=== PATIENT | male | born 1980 | race Caucasian/White ===

== ENCOUNTER 2017-02-25 14:13 | Emergency (ER) | payer OTHER ==
[~2017-02-25] VITALS: Ht 167.6 cm; Wt 77.1 kg
[~2017-02-25 14:13] MED LIST: ATEN50TA2 PO; CELE20TA PO; DRIS50002 PO; FIOR1CAP PO; HYDR-3644 PO; LISI-538 PO; LYRI100C10 PO; MOBI7.5T10 PO; NAPR500T2 PO; PRIL20CA9 PO; SKEL-29 PO; TENO1TAB4 PO; ZEST1TAB7 PO
[2017-02-25] MEDS ORDERED: MORPHINE 4 MG/ML 1ML SYRINGE IV ONE (14:45)
[2017-02-25] MEDS ORDERED: ISOVUE-370 76% 100ML VIAL (Q9967) As Ordered ONE (15:28)
[2017-02-25 15:30] LABS: BASO % 0.4 % (0.0-1.0); EOS # 0.2 K/mm3 (0.0-0.50); EOS % 1.4 % (0.0-3.0); LARGE UNSTAINED CELL # 0.2 K/mm3 (0.0-0.4); LARGE UNSTAINED CELL % 1.5 % (0.0-4.0); LYMPH # 3.1 K/mm3 (1.5-4.5); LYMPH % 25.5 % (24.0-44.0); MEAN CORPUSCULAR HEMOGLOBIN 32.2 pg (27.0-33.0); MEAN CORPUSCULAR HGB CONC 34.1 g/dl (32.0-36.5); MEAN CORPUSCULAR VOLUME 94.4 fl (80.0-96.0); MONO # 0.5 K/mm3 (0.0-0.8); MONO % 4.6 % (0.0-5.0); NEUTROPHILS # 7.6 K/mm3 (1.8-7.7); NEUTROPHILS % 66.6 % (36.0-66.0); PLATELET COUNT, AUTOMATED 358 k/mm3 (150-450); RED CELL DISTRIBUTION WIDTH 13.3 % (11.5-14.5); WHITE BLOOD COUNT 11.3 K/mm3 (4.0-10.0)
[2017-02-25 15:38] LABS: INR 0.95
[2017-02-25 15:56] LABS: ALBUMIN 3.8 GM/DL (3.2-5.2); ALKALINE PHOSPHATASE 109 U/L (45-117); ALT/SGPT 35 U/L (12-78); AMYLASE 47 U/L (25-115); ANION GAP 5 MEQ/L (8-16); AST/SGOT 20 U/L (15-37); BILIRUBIN,DIRECT < 0.1 MG/DL (0.0-0.2); BILIRUBIN,TOTAL 0.3 MG/DL (0.2-1.0); BLOOD UREA NITROGEN 12 MG/DL (7-18); CALCIUM LEVEL 8.6 MG/DL (8.5-10.1); CARBON DIOXIDE LEVEL 28 MEQ/L (21-32); CHLORIDE LEVEL 106 MEQ/L (98-107); CREATININE FOR GFR 0.95 MG/DL (0.70-1.30); GLOMERULAR FILTRATION RATE > 60.0 (>60); GLUCOSE, FASTING 87 MG/DL (70-105); POTASSIUM SERUM 3.9 MEQ/L (3.5-5.1); SODIUM LEVEL 139 MEQ/L (136-145); TOTAL PROTEIN 7.6 GM/DL (6.4-8.2)
[2017-02-25 17:14] VITALS: BP 129/86
[2017-02-25] MEDS ORDERED: BUPR300T34 (18:31)
[2017-02-25] MEDS ORDERED: OXYC15TA76 (18:31)
[2017-02-25] MEDS ORDERED: BUTA-198 (18:31)
[2017-02-25] MEDS ORDERED: HYDR-3713 (18:31)
[2017-02-25] MEDS ORDERED: CLEM2.68 (18:31)
--- NOTE | 2017-02-26 07:48 | REP ---
CT CERVICAL SPINE: CT cervical spine performed in the axial plane with sagittal and coronal reconstruction images. There is no fracture or dislocation. Vertebral bodies are normal in height and are well aligned with normal cervical lordosis. There is no prevertebral soft tissue swelling. Disc spaces appear preserved. Spinal canal is grossly unremarkable. IMPRESSION: No fracture or dislocation. Signed by Lyle Decker MD 02/26/2017 12:19 P
--- NOTE | 2017-02-26 07:48 | REP ---
CT BRAIN WITHOUT CONTRAST: CT brain is performed without IV contrast. Ventricles are normal in size and position. There is no midline shift. No abnormal densities are seen. Decker-white differentiation is well maintained. There is no acute hemorrhage. There is no extra-axial fluid collection. No skull fracture is seen. IMPRESSION: Negative noncontrast CT brain. Signed by Lyle Decker MD 02/26/2017 12:19 P
--- NOTE | 2017-02-26 07:51 | REP ---
CT CHEST WITH IV CONTRAST: TECHNIQUE: Axial contrast enhanced images from the thoracic inlet to the upper abdomen using 100 mL Isovue 370 intravenous contrast material with multiplanar reformations. Lungs are clear with no infiltrate or contusion. There is no pneumothorax. There is no pleural or pericardial effusion. Heart is normal in size. No adenopathy or hematoma is seen in the mediastinum. Normal size hilar lymph nodes are present. There is no evidence of aortic dissection. Visualized osseous structures are intact with no fracture. IMPRESSION: Negative CT chest with IV contrast as discussed in detail above. Signed by Lyle Decker MD 02/26/2017 12:19 P
--- NOTE | 2017-02-26 07:52 | REP ---
BILATERAL HUMERI, AP AND LATERAL: There is no evidence of an acute fracture, dislocation or intrinsic bone disease. IMPRESSION: No fracture or dislocation. Signed by Lyle Decker MD 02/26/2017 12:19 P
--- NOTE | 2017-02-26 07:52 | REP ---
LEFT KNEE, FOUR VIEWS: There is no evidence of an acute fracture, dislocation or intrinsic bone disease. IMPRESSION: No fracture or dislocation. Signed by Lyle Decker MD 02/26/2017 12:19 P
--- NOTE | 2017-02-26 07:53 | REP ---
BILATERAL FOREARMS, AP AND LATERAL: There is no evidence of an acute fracture, dislocation or intrinsic bone disease. IMPRESSION: No fracture or dislocation. Signed by Lyle Decker MD 02/26/2017 12:19 P
--- NOTE | 2017-02-26 07:54 | REP ---
CT ABDOMEN AND PELVIS WITH IV CONTRAST: TECHNIQUE: Axial contrast enhanced images from the lung bases to the pubic symphysis using 100 mL Isovue 370 intravenous contrast material with multiplanar reformations. The liver, spleen, adrenals, pancreas, and kidneys appear normal. There is no evidence of visceral organ injury. There is no abnormality of the abdominal aorta. There is no adenopathy. There is no free air or free fluid. No bowel abnormality is seen. The appendix is normal. There is no pelvic mass or other abnormality. Urinary bladder appears intact. The visualized osseous structures are intact. IMPRESSION: Negative CT abdomen and pelvis with contrast. No evidence of visceral organ injury, free air, or free fluid. Signed by Lyle Decker MD 02/26/2017 12:19 P
== END 2017-02-25 17:18 | disposition home or self-care (01) ==
LOC: M ED 15:17
DX: S50.812A Abrasion of left forearm, initial encounter (principal); S80.212A Abrasion, left knee, initial encounter; S83.92XA Sprain of unspecified site of left knee, initial encounter; V03.00XA Pedestrian on foot injured in collision with car, pick-up truck or van in nontraffic accident, initial encounter; Y92.018 Other place in single-family (private) house as the place of occurrence of the external cause; Y93.89 Activity, other specified; Y99.8 Other external cause status; I10 Essential (primary) hypertension; M79.7 Fibromyalgia; F41.8 Other specified anxiety disorders; F33.9 Major depressive disorder, recurrent, unspecified; Z79.899 Other long term (current) drug therapy; Z88.5 Allergy status to narcotic agent; Z88.8 Allergy status to other drugs, medicaments and biological substances; F17.210 Nicotine dependence, cigarettes, uncomplicated
CPT/HCPCS: 70450; 71260; 72125; 73060; 73090; 73564; 74177; 80048; 80076; 81001; 82150; 83605; 83690; 85025; 85610; 85730; 86850; 86900; 86901; 96374; 99283; Q9967

== ENCOUNTER → 2018-06-21 | Outpatient (CLI) | payer OTHER | LOC: M PAIN 14:00 | DX: M51.16 Intervertebral disc disorders with radiculopathy, lumbar region (principal); M51.17 Intervertebral disc disorders with radiculopathy, lumbosacral region; M47.816 Spondylosis without myelopathy or radiculopathy, lumbar region; M47.817 Spondylosis without myelopathy or radiculopathy, lumbosacral region; M54.5 Low back pain; G89.29 Other chronic pain; M79.7 Fibromyalgia; F32.9 Major depressive disorder, single episode, unspecified; G43.909 Migraine, unspecified, not intractable, without status migrainosus; F41.0 Panic disorder [episodic paroxysmal anxiety]; F17.200 Nicotine dependence, unspecified, uncomplicated; Z79.899 Other long term (current) drug therapy; Z88.5 Allergy status to narcotic agent; Z88.6 Allergy status to analgesic agent; Z88.8 Allergy status to other drugs, medicaments and biological substances | CPT/HCPCS: G0463 ==

== ENCOUNTER 2018-07-04 12:34 | Emergency (ER) | payer OTHER | END 2018-07-04 14:17 | disposition left against medical advice (07) | LOC: M ED 12:34 | DX: R03.0 Elevated blood-pressure reading, without diagnosis of hypertension (principal); Z53.21 Procedure and treatment not carried out due to patient leaving prior to being seen by health care provider ==

== ENCOUNTER → 2018-07-04 | Outpatient (CLI) | payer OTHER | LOC: M PAIN 11:30 | DX: M54.5 Low back pain (principal); G89.29 Other chronic pain; M79.1 Myalgia; R00.0 Tachycardia, unspecified; I10 Essential (primary) hypertension; G43.909 Migraine, unspecified, not intractable, without status migrainosus; F32.9 Major depressive disorder, single episode, unspecified; F41.9 Anxiety disorder, unspecified; F17.210 Nicotine dependence, cigarettes, uncomplicated; Z79.891 Long term (current) use of opiate analgesic; Z79.899 Other long term (current) drug therapy; Z88.8 Allergy status to other drugs, medicaments and biological substances; Z91.81 History of falling | CPT/HCPCS: G0463 ==

== ENCOUNTER 2018-07-16 22:37 | Emergency (ER) | payer OTHER ==
[2018-07-17] MEDS: oxyCODONE 5MG TAB PO ×2 (01:42)
[2018-07-17 01:44] LABS: BASO % 0.3 % (0.0-1.0); EOS # 0.3 10^3/uL (0.0-0.50); EOS % 2.3 % (0.0-3.0); HEMATOCRIT 42.9 % (42.0-52.0); IMMATURE GRANULOCYTE % 0.4 % (0-3.0); LYMPH # 3.8 10^3/uL (1.5-4.5); LYMPH % 27.1 % (24.0-44.0); MEAN CORPUSCULAR HEMOGLOBIN 31.6 pg (27.0-33.0); MEAN CORPUSCULAR VOLUME 90.3 fl (80.0-96.0); MONO # 1.5 10^3/uL (0.0-0.8); MONO % 10.3 % (0.0-5.0); NEUTROPHILS # 8.4 10^3/uL (1.8-7.7); NEUTROPHILS % 59.6 % (36.0-66.0); PLATELET COUNT, AUTOMATED 369 10^3/uL (150-450); RED BLOOD COUNT 4.75 10^6/uL (4.30-6.10); WHITE BLOOD COUNT 14.1 10^3/uL (4.0-10.0)
[2018-07-17 02:02] LABS: ANION GAP 8 MEQ/L (8-16); BLOOD UREA NITROGEN 15 MG/DL (7-18); CALCIUM LEVEL 8.3 MG/DL (8.5-10.1); CARBON DIOXIDE LEVEL 22 MEQ/L (21-32); CHLORIDE LEVEL 110 MEQ/L (98-107); CPK CREATINE PHOSPHOKINASE 539 U/L (39-308); CREATININE FOR GFR 0.99 MG/DL (0.70-1.30); GLOMERULAR FILTRATION RATE > 60.0 (>60); GLUCOSE, FASTING 94 MG/DL (70-100); MB/CK RELATIVE INDEX 0.48 (< OR =4); POTASSIUM SERUM 5.1 MEQ/L (3.5-5.1); SODIUM LEVEL 140 MEQ/L (136-145); TROPONIN I < 0.02 NG/ML (< 0.10)
== END 2018-07-17 01:51 | disposition left against medical advice (07) ==
LOC: M ED 07-17 01:51
DX: M54.9 Dorsalgia, unspecified (principal); G89.29 Other chronic pain; F17.210 Nicotine dependence, cigarettes, uncomplicated; Z79.899 Other long term (current) drug therapy
CPT/HCPCS: 93005

== ENCOUNTER → 2018-07-19 | Outpatient (CLI) | payer OTHER | LOC: M PAIN 14:15 | DX: M54.5 Low back pain (principal); G89.29 Other chronic pain; M79.7 Fibromyalgia; G25.81 Restless legs syndrome; F32.9 Major depressive disorder, single episode, unspecified; G43.909 Migraine, unspecified, not intractable, without status migrainosus; F41.0 Panic disorder [episodic paroxysmal anxiety]; I10 Essential (primary) hypertension; Z72.0 Tobacco use; Z79.899 Other long term (current) drug therapy; Z88.5 Allergy status to narcotic agent; Z88.6 Allergy status to analgesic agent; Z88.8 Allergy status to other drugs, medicaments and biological substances | CPT/HCPCS: G0463 ==

== ENCOUNTER 2018-07-23 19:53 | Emergency (ER) | payer OTHER ==
[2018-07-23 20:29] LABS: HEMATOCRIT 44.1 % (42.0-52.0); HEMOGLOBIN 15.2 g/dl (13.5-17.5); MEAN CORPUSCULAR HEMOGLOBIN 31.9 pg (27.0-33.0); MEAN CORPUSCULAR HGB CONC 34.5 g/dl (32.0-36.5); MEAN CORPUSCULAR VOLUME 92.6 fl (80.0-96.0); PLATELET COUNT, AUTOMATED 388 10^3/uL (150-450); RED BLOOD COUNT 4.76 10^6/uL (4.30-6.10); RED CELL DISTRIBUTION WIDTH 13.5 % (11.5-14.5)
[2018-07-23 20:33] LABS: POSITIVE DIFF POS FLAG; WHITE BLOOD COUNT 11.4 10^3/uL (4.0-10.0)
[2018-07-23 20:34] LABS: ADD MANUAL DIFFER YES; DIFF SLIDE NUMBER 411; POSITIVE MORPH POS FLAG
[2018-07-23] MEDS: NS 500 ML IV ×2 (20:41)
[2018-07-23 20:50] LABS: INR 0.94; PROTHROMBIN TIME 12.7 SECONDS (12.1-14.4)
[2018-07-23 20:53] LABS: D-DIMER QUANT 422.8 ng/ml (<500)
[2018-07-23 21:07] LABS: ATYPICAL LYMPH 2 % (0-5); EOSINOPHILS 1 % (0-5); LYMPHOCYTES 37 % (16-52); MONOCYTES 4 % (0-8); NEUTROPHILS 56 % (35-75)
[2018-07-23 21:08] LABS: PLATELET ESTIMATE NORMAL (NORMAL)
[2018-07-23 21:18] LABS: AMPHETAMINES LEVEL URINE NEGATIVE (NEGATIVE); BARBITURATES URINE POSITIVE (NEGATIVE); BENZODIAZEPINES URINE NEGATIVE (NEGATIVE); CANNABINOIDS URINE POSITIVE (NEGATIVE); COCAINE METABOLITE URINE NEGATIVE (NEGATIVE); METHADONE URINE NEGATIVE (NEGATIVE); OPIATES URINE POSITIVE (NEGATIVE); PHENCYCLIDINE URINE NEGATIVE (NEGATIVE)
[2018-07-23 21:25] LABS: ANION GAP 8 MEQ/L (8-16); BLOOD UREA NITROGEN 12 MG/DL (7-18); CALCIUM LEVEL 8.4 MG/DL (8.5-10.1); CARBON DIOXIDE LEVEL 24 MEQ/L (21-32); CHLORIDE LEVEL 108 MEQ/L (98-107); CK-MB VALUE MASS < 1.0 NG/ML (<3.6); CPK CREATINE PHOSPHOKINASE 83 U/L (39-308); CREATININE FOR GFR 0.88 MG/DL (0.70-1.30); GLOMERULAR FILTRATION RATE > 60.0 (>60); GLUCOSE, FASTING 111 MG/DL (70-100); POTASSIUM SERUM 3.4 MEQ/L (3.5-5.1); SODIUM LEVEL 140 MEQ/L (136-145); TROPONIN I < 0.02 NG/ML (< 0.10)
[2018-07-23] MEDS: oxyCODONE 5MG TAB PO ×2 (22:35)
== END 2018-07-23 22:47 | disposition home or self-care (01) ==
LOC: M ED 19:53
DX: R07.89 Other chest pain (principal); G89.29 Other chronic pain; M54.9 Dorsalgia, unspecified; I10 Essential (primary) hypertension; Z86.73 Personal history of transient ischemic attack (TIA), and cerebral infarction without residual deficits; M51.9 Unspecified thoracic, thoracolumbar and lumbosacral intervertebral disc disorder; Z79.899 Other long term (current) drug therapy; Z88.6 Allergy status to analgesic agent; Z88.5 Allergy status to narcotic agent; Z88.8 Allergy status to other drugs, medicaments and biological substances
CPT/HCPCS: 71045

== ENCOUNTER → 2019-02-28 | Outpatient (CLI) | payer OTHER ==
[~2019-02-28] MED LIST changes: +AMIT50TA; +BUPR300T34; +BUTA-198; +CITA40TA4; +CLEM2.68; -DRIS50002 PO; +DRIS50003 PO; +DULO1CAP3 PO; +HYDR-3713; +LEVOTAB10; +LISI-538; -LYRI100C10 PO; +MOBI4TAB PO; -MOBI7.5T10 PO; +NAPR-885 PO; -NAPR500T2 PO; +NICO4GUM2; +OXYC-517 PO; +OXYC15TA76; +PREG100CA PO; +ROXI1TAB2 PO; -SKEL-29 PO; +SKEL800T97 PO; +TERA5CAP3; +VITA50005
--- NOTE | 2019-02-28 16:22 | REP ---
MRA Brain without contrast History: Headaches 3-D [id number] MR angiography was performed at the level of the skull [place]. There is no aneurysm, arteriovenous malformation or atherosclerotic lesion. Major intracranial vessels are patent. Impression: Normal MRA brain. Electronically Signed by Nj Lowe MD 02/28/2019 04:14 P
--- NOTE | 2019-02-28 16:26 | REP ---
MR Brain without contrast HISTORY: Headache COMPARISON : CT 02/25/2017 A single punctate focus of increased signal intensity on T2-weighted images is present in the subcortical white matter of the right frontal lobe. There is no intraparenchymal hemorrhage, infarct, mass or midline shift. The ventricular system is normal in appearance. There is no extra cerebral collection. Minimal mucosal thickening is present in the left maxillary sinus. IMPRESSION: There is a single punctate focus of increased signal intensity in the subcortical white matter of the right frontal lobe. This is a nonspecific finding. Electronically Signed by Nj Lowe MD 02/28/2019 04:18 P
== END ==
LOC: M RAD 14:48
PROVIDERS: ATTEND Nurse Practitioner Family
DX: R55 Syncope and collapse (principal); G43.019 Migraine without aura, intractable, without status migrainosus; Z87.828 Personal history of other (healed) physical injury and trauma

== ENCOUNTER → 2019-05-19 | Outpatient (CLI) | payer OTHER ==
[~2019-05-19] MED LIST changes: -DULO1CAP3 PO; +DULO1CAP6 PO
--- NOTE | 2019-05-20 08:08 | REP ---
MR LUMBAR SPINE WITHOUT CONTRAST: HISTORY: Back pain. COMPARISON: 05/07/2015. Decreased signal intensity on T2-weighted images is present in the L5-S1 intervertebral discs. The disc is decreased in height. These findings are consistent with disc degeneration. There is no disc bulge or herniation at the L1-2 and L2-3 levels. The nerves exit the neural foramina without compression. A diffuse disc bulge is present at the L3-4 level. There is minimal compression of the thecal sac. There is hypertrophy of the posterior articulating facets. The L3 nerves exit the neural foramina without compression. A diffuse disc bulge is present at the L4-5 level. There is minimal compression of the thecal sac. There is hypertrophy of the posterior articulating facets. The L4 nerves exit the neural foramina without compression. A diffuse disc bulge and small central disc protrusion are present at the L5-S1 level. The disc protrusion abuts the thecal sac. There is hypertrophy of the posterior articulating facets. The L5 nerves exit the neural foramina without compression. The conus medullaris is normal in appearance terminating at the level of the T12-L1 intervertebral disc . Normal signal intensity is present in the lumbar vertebral bodies. IMPRESSION: 1. Diffuse disc bulges at the L3-4 and L4-5 levels with minimal thecal sac compression. The disc bulge at the L3-4 level is a new finding. 2 .Diffuse disc bulge and small central disc protrusion at the L5-S1 level. The disc protrusion abuts the thecal sac. There is no other significant change. Electronically Signed by Nj Lowe MD 05/20/2019 08:15 A
== END ==
LOC: M RAD 16:51
PROVIDERS: ATTEND Nurse Practitioner Family
DX: M51.16 Intervertebral disc disorders with radiculopathy, lumbar region (principal); R29.898 Other symptoms and signs involving the musculoskeletal system